=== PATIENT | female | born 1965 | race Caucasian/White ===

== ENCOUNTER 2017-03-01 07:13 | Outpatient (CLI) | payer OTHER | END 2017-03-01 07:14 | disposition home or self-care (01) | LOC: BICMAMMO 07:13 | PROVIDERS: ATTEND Family Medicine | DX: R92.2 Inconclusive mammogram (principal) | CPT/HCPCS: G0206-LT; G0279 ==

== ENCOUNTER 2023-03-15 07:43 | Outpatient (CLI) | payer BC | END 2023-03-15 07:44 | disposition home or self-care (01) | LOC: SCSMRI 07:43 | PROVIDERS: ATTEND Orthopaedic Surgery | DX: M54.2 Cervicalgia (principal); M47.812 Spondylosis without myelopathy or radiculopathy, cervical region | CPT/HCPCS: 72141 ==